=== PATIENT | male | born 1980 | race African-American/Black ===

== ENCOUNTER 2016-06-10 03:36 | Emergency (ER) | payer OTHER ==
[~2016-06-10] VITALS: Ht 170.2 cm; Wt 94.0 kg
[~2016-06-10 03:36] MED LIST: AMLO10TA80 PO; AMLO5TAB4; DIVA500T PO; KEPP250; LANS30CA55 PO; LEVE500T19 PO; PHEN100C4; PHEN100C4 PO; TYLENOL; depakote
[2016-06-10] MEDS ORDERED: LIDOCAINE HCL/EPINEPHRINE 1%-EPI 1:100,000 20 ML VIAL MC ONE (05:15)
[2016-06-10] MEDS ORDERED: KETOROLAC 60MG/2ML VIAL IM ONE (05:45)
[2016-06-10] MEDS ORDERED: LIDOCAINE HCL/EPINEPHRINE 1%-EPI 1:100,000 50 ML VIAL INFIL NR (05:45)
[2016-06-10 08:01] VITALS: BP 150/90
== END 2016-06-10 08:09 | disposition home or self-care (01) ==
LOC: ER 03:37
DX: L02.214 Cutaneous abscess of groin (principal); R56.9 Unspecified convulsions; I10 Essential (primary) hypertension; Z98.890 Other specified postprocedural states
CPT/HCPCS: 10060; 96372; 99283; J1885; J3490; Z7610

== ENCOUNTER 2016-06-14 06:57 | Emergency (ER) | payer OTHER ==
[~2016-06-14] VITALS: Ht 167.6 cm; Wt 94.0 kg
[2016-06-14 07:40] VITALS: BP 159/98
== END 2016-06-14 08:14 | disposition home or self-care (01) ==
LOC: ER 07:40
DX: Z48.00 Encounter for change or removal of nonsurgical wound dressing (principal)
CPT/HCPCS: 99281; Z7610

== ENCOUNTER 2016-07-08 22:44 | Emergency (ER) | payer OTHER ==
[~2016-07-08] VITALS: Ht 167.6 cm; Wt 102.0 kg
[2016-07-08] MEDS ORDERED: BACITRACIN ZINC OINT UDPKT TOP ONE (23:30)
[2016-07-08] MEDS ORDERED: LIDOCAINE HCL 1% 20ML VIAL (Pyxis) INJ INFIL ONE (23:30)
[2016-07-08] MEDS ORDERED: TETANUS, DIPHTHERIA, PERTUSSIS VAC/PF 0.5ML (>7YR OLD) IM ONE (23:30)
[2016-07-09 00:44] VITALS: BP 122/77
== END 2016-07-09 00:46 | disposition home or self-care (01) ==
LOC: ER 22:45
DX: S41.112A Laceration without foreign body of left upper arm, initial encounter (principal); Y93.39 Activity, other involving climbing, rappelling and jumping off; Y99.9 Unspecified external cause status; Y92.89 Other specified places as the place of occurrence of the external cause; Z23 Encounter for immunization
CPT/HCPCS: 12002; 90471; 90715; 99283; J3490; X7700; Z7610

== ENCOUNTER 2024-04-13 20:22 | Emergency (ER) | payer MEDICAID, OTHER ==
[~2024-04-13] VITALS: Ht 177.8 cm; Wt 105.0 kg
[~2024-04-13 20:22] MED LIST changes: -AMLO5TAB4; +AMLO5TAB5; +DIVA-75 PO; -DIVA500T PO
[2024-04-13 20:26] VITALS: O2SAT 100
[2024-04-13] MEDS: LEVETIRACETAM 500MG PREMIX 100 ML IV ONE (21:25)
[2024-04-13] MEDS: PHENYTOIN SODIUM EXTENDED 100MG CAPSULE PO ONE (23:15)
[2024-04-13] MEDS: VALPROIC ACID 250MG CAPSULE PO ONE (23:15)
[2024-04-13] MEDS: ACETAMINOPHEN 500MG TABLET PO ONE (23:15)
[2024-04-13 23:41] VITALS: TEMP 37.7
[2024-04-14 03:14] LABS: PHENYTOIN 15.8 ug/mL (10-20)
[2024-04-14 03:15] LABS: VALPROIC ACID 51.5 ug/mL (50-100)
[2024-04-14 04:00] VITALS: BP 156/85; PULSE 92; RESP 15; O2SAT 99
== END 2024-04-14 04:15 | disposition home or self-care (01) ==
LOC: ER 20:22
DX: G40.909 Epilepsy, unspecified, not intractable, without status epilepticus (principal); I10 Essential (primary) hypertension; Z20.822 Contact with and (suspected) exposure to COVID-19; Z79.899 Other long term (current) drug therapy; Z86.59 Personal history of other mental and behavioral disorders
CPT/HCPCS: 36415; 71045; 96365; 99285; 87426; 80185; 80165; J1953; Z7610 ×2; A4606

== ENCOUNTER 2025-01-25 12:10 | Emergency (ER) | payer MEDICAID ==
[~2025-01-25] VITALS: Ht 172.7 cm; Wt 93.0 kg
[~2025-01-25 12:10] MED LIST changes: -AMLO5TAB5; +AMLO5TAB6; +DIVA-131 PO; -DIVA-75 PO; -TYLENOL; -depakote
[2025-01-25 12:19] VITALS: O2SAT 99
[2025-01-25 12:26] VITALS: TEMP 36.9; O2SAT 98
[2025-01-25 15:31] VITALS: BP 162/91; PULSE 91; RESP 16
[2025-01-25] MEDS: IBUPROFEN 400MG TABLET PO ONE (15:31)
[2025-01-25] MEDS ORDERED: IBUP-2437 MT (16:27)
== END 2025-01-25 16:39 | disposition home or self-care (01) ==
LOC: ER 12:10
DX: S46.902A Unspecified injury of unspecified muscle, fascia and tendon at shoulder and upper arm level, left arm, initial encounter (principal); I10 Essential (primary) hypertension; Z79.899 Other long term (current) drug therapy; W19.XXXA Unspecified fall, initial encounter; Y93.89 Activity, other specified; Y92.89 Other specified places as the place of occurrence of the external cause; Y99.8 Other external cause status
CPT/HCPCS: 29130; 73120; 99283